=== PATIENT | female | born 1950 | race Two or more races ===

== ENCOUNTER 2018-09-09 13:58 | Emergency (ER) | payer SELFPAY ==
[~2018-09-09] VITALS: Ht 152.4 cm; Wt 65.8 kg
[2018-09-09] MEDS ORDERED: LIPITOR80 MG ORAL (14:11)
[2018-09-09] MEDS ORDERED: PRAVACHOL40 MG ORAL (14:13)
[2018-09-09] MEDS ORDERED: ACETAMINOPHEN160 MG ORAL (14:13)
[2018-09-09] MEDS ORDERED: PREDNISONE20 MG ORAL (14:25)
--- NOTE | 2018-09-09 14:35 | Emergency Room Report ---
History of Present Illness General Chief Complaint: Wound Recheck/Suture Removal Source: Patient Present Illness HPI Patient is a 67-year-old female presented after persistent right index finger discomfort. Patient had prior history of previous hospitalization at hospital in [place] for the similar symptoms. This had began approximately 3 weeks ago. She denies any fever. Patient had been taking multiple medications. 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 Patient reports having continued discomfort. She denies any fever. She denies any prior history of rheumatoid disease.Patient is right-hand dominant. Allergies: Coded Allergies: No Known Allergies (Unverified , 09/09/18) Patient History Past Medical History: see triage record Reviewed Nursing Documentation: PMH: Agreed; PSxH: Agreed Nursing Documentation-PMH Past Medical History: No History, Except For Hx Hypertension: Yes Review of Systems All Other Systems: negative except mentioned in HPI Physical Exam Vital Signs Date Time Temp Pulse Resp B/P (MAP) Pulse Ox O2 Delivery O2 Flow Rate FiO2 09/09/18 14:02 98.2 92 16 133/80 96 Room Air General Appearance: well appearing, no apparent distress, alert, GCS 15 Head: normocephalic, atraumatic ENT: hearing grossly normal, normal voice Neck: full range of motion, supple Respiratory: no respiratory distress, speaking full sentences Musculoskeletal: no calf tenderness Neurologic: normal gait Psychiatric: mood/affect normal Skin: no rash Medical Decision Making Diagnostic Impression: Primary Impression: Scleroderma ER Course Patient presented for finger pain. Differential diagnosis include was not limited to scleroderma, vascular occlusion, cellulitis among others. Patient has a benign exam and does not appear to require any further imaging or laboratory testing at this time. Patient appears to have some dry gangrene of her right index finger. Patient does not appear to have any evidence of acute infection. Patient was given oral prednisone. She was advised to follow-up with primary care for rheumatology referral. Patient's finger appears to be unchanged for the past 2 weeks. Last Vital Signs Date Time Temp Pulse Resp B/P (MAP) Pulse Ox O2 Delivery O2 Flow Rate FiO2 09/09/18 14:02 98.2 92 16 133/80 96 Room Air Status: improved Disposition: HOME, SELF-CARE Condition: Stable Scripts Prednisone* (PREDNISONE*) 20 Mg Tablet 20 MG ORAL DAILY, #5 TAB Prov: Jarod Suero MD 09/09/18 Patient Instructions: Scleroderma Additional Instructions: Follow up with rheumatology. Jarod Suero MD Sep 09, 2018 14:35
[2018-09-09 14:54] VITALS: BP 133/80
== END 2018-09-09 14:59 | disposition home or self-care (01) ==
LOC: EMR 14:54
DX: M34.9 Systemic sclerosis, unspecified (principal); I10 Essential (primary) hypertension
CPT/HCPCS: 99282; J7512